=== PATIENT | female | born 1990 ===

== ENCOUNTER 2024-03-12 04:12 | Day surgery (SDC) | payer OTHER ==
[2024-03-06 12:27] VITALS: BMI 28.3
[2024-03-12] MEDS ORDERED: FENTANYL CITRATE/PF 50 MCG/ML VIAL ONE ×4 (11:21→15:44)
[2024-03-12] MEDS ORDERED: MIDAZOLAM HCL 2 MG/2 ML SINGLE DOSE VIAL ONE (11:22)
[2024-03-12] MEDS ORDERED: LIDOCAINE 1%/EPI 1:100000 (20 ML MULTI DOSE VIAL) ONE (11:47)
[2024-03-12] MEDS ORDERED: COCAINE HCL 4% TOPICAL SOLUTION 4 ML BOTTLE TP ONE (11:52)
[2024-03-12] MEDS ORDERED: ONDANSETRON 4 MG/2 ML VIAL IVPUSH PRN (11:57)
[2024-03-12] MEDS ORDERED: LACTATED RINGERS SOLUTION 1,000 ML IV SCH (12:00)
[2024-03-12] MEDS: ceFAZolin SODIUM 1 GM VIAL IVPB ONE (12:22)
[2024-03-12] MEDS: OXYMETAZOLINE 0.05% NASAL SOLUTION 15 ML BOTTLE NS ONE (12:44)
[2024-03-12] MEDS ORDERED: BUPIVACAINE HCL/PF 0.5% (5MG/ML) 10 ML VIAL ONE (12:45)
[2024-03-12] MEDS: BUPIVACAINE HCL/PF 0.5% (5 MG/ML) 30 ML VIAL IJ ONE ×3 (12:48)
[2024-03-12] MEDS: LIDOCAINE 1%/EPI 1:100000 (20 ML MULTI DOSE VIAL) INF ONE ×3 (13:14)
[2024-03-12] MEDS ORDERED: PROPOFOL 20 ML ONE (14:01)
[2024-03-12] MEDS ORDERED: PROPOFOL 60 ML ONE (14:10)
[2024-03-12] MEDS ORDERED: ACETAMINOPHEN INJECTION 100 ML IVPB ONE (15:53)
[2024-03-12] MEDS: ACETAMINOPHEN 1000 MG/100 ML BAG IVPB ONE (15:55)
[2024-03-12] MEDS: oxyCODONE HCL 5 MG TABLET PO PRN (16:39)
[2024-03-12] MEDS ORDERED: oxyCODONE HCL 5 MG TABLET ONE (16:40)
[2024-03-12 18:07] VITALS: RESP 20; TEMP 98.6
[2024-03-12 18:10] VITALS: BP 118/73; PULSE 85
== END 2024-03-12 18:00 | disposition home or self-care (01) ==
LOC: JASU-SURG 04:12
PROVIDERS: ATTEND Otolaryngology
PROC: 09TL8ZZ Resection of Nasal Turbinate, Via Natural or Artificial Opening Endoscopic (ICD-10-PCS; 2024-03-12)
PROC: 0CTQ0ZZ Resection of Adenoids, Open Approach (ICD-10-PCS; 2024-03-12)
PROC: 0CTPXZZ Resection of Tonsils, External Approach (ICD-10-PCS; 2024-03-12)
PROC: 09BM8ZZ Excision of Nasal Septum, Via Natural or Artificial Opening Endoscopic (ICD-10-PCS; 2024-03-12)
PROC: 09TL8ZZ Resection of Nasal Turbinate, Via Natural or Artificial Opening Endoscopic (ICD-10-PCS; 2024-03-12)
PROC: 09JY8ZZ Inspection of Sinus, Via Natural or Artificial Opening Endoscopic (ICD-10-PCS; principal; 2024-03-12 12:00)
DX: J35.1 Hypertrophy of tonsils (principal); J34.2 Deviated nasal septum; J34.3 Hypertrophy of nasal turbinates; J32.0 Chronic maxillary sinusitis; J34.9 Unspecified disorder of nose and nasal sinuses; J32.2 Chronic ethmoidal sinusitis
CPT/HCPCS: 81025; 88304-TC; 94760; J0131